=== PATIENT | male | born 1965 | race Caucasian/White ===

== ENCOUNTER 2017-02-08 01:13 | Emergency (ER) | payer MEDICAID ==
[~2017-02-08] VITALS: Ht 172.7 cm; Wt 63.4 kg
[~2017-02-08 01:13] MED LIST: CLIN300C8 PO; HYDR-3237 PO
[2017-02-08] MEDS ORDERED: ONDANSETRON ODT 4 MG ONE (01:50)
[2017-02-08] MEDS ORDERED: HYDROcodone/APAP 5/325 TABLET ONE (01:50)
[2017-02-08] MEDS ORDERED: ONDANSETRON ODT 4 MG PO ONE (02:00)
[2017-02-08] MEDS ORDERED: HYDROcodone/APAP 5/325 TABLET PO ONE (02:00)
[2017-02-08] MEDS ORDERED: LORazepam 0.5MG TABLET PO ONE (02:30)
[2017-02-08] MEDS ORDERED: LORazepam 0.5MG TABLET ONE (02:42)
[2017-02-08 03:00] LABS: DAU SCREEN DISCLAIMER
[2017-02-08 04:19] VITALS: BP 114/74
== END 2017-02-08 04:21 | disposition home or self-care (01) ==
LOC: ED 03:18
DX: N49.2 Inflammatory disorders of scrotum (principal); K40.90 Unilateral inguinal hernia, without obstruction or gangrene, not specified as recurrent; F15.10 Other stimulant abuse, uncomplicated
CPT/HCPCS: 76857; 76870; 80307; 81003; 99285; Q0162; G0479

== ENCOUNTER 2017-02-08 11:36 | Emergency (ER) | payer MEDICAID ==
[~2017-02-08] VITALS: Ht 172.7 cm; Wt 63.8 kg
[2017-02-08 11:37] VITALS: BP 129/88
[2017-02-08] MEDS ORDERED: HYDROcodone/APAP 5/325 TABLET ONE (12:13)
[2017-02-08] MEDS ORDERED: HYDROcodone/APAP 5/325 TABLET PO ONE (12:30)
[2017-02-08] MEDS ORDERED: OXYcodone/APAP 5/325MG TABLET PO ONE (12:30)
== END 2017-02-08 12:29 | disposition home or self-care (01) ==
LOC: ED 12:23
DX: R10.9 Unspecified abdominal pain (principal); F41.9 Anxiety disorder, unspecified
CPT/HCPCS: 99283

== ENCOUNTER 2017-05-06 07:43 | Emergency (ER) | payer MEDICAID ==
[~2017-05-06] VITALS: Ht 172.7 cm; Wt 64.0 kg
[2017-05-06 07:45] VITALS: BP 139/92
[2017-05-06] MEDS ORDERED: LORazepam 1MG TABLET PO ONE (08:00)
[2017-05-06] MEDS ORDERED: LORazepam 1MG TABLET ONE (08:07)
== END 2017-05-06 09:00 | disposition home or self-care (01) ==
LOC: ED 08:05
DX: F41.1 Generalized anxiety disorder (principal); Z88.0 Allergy status to penicillin
CPT/HCPCS: 99284

== ENCOUNTER 2018-02-12 04:47 | Emergency (ER) | payer MEDICAID, OTHER ==
[~2018-02-12] VITALS: Ht 172.7 cm; Wt 70.6 kg
[2018-02-12 07:08] VITALS: BP 139/92
== END 2018-02-12 07:25 | disposition home or self-care (01) ==
LOC: ED 07:20
DX: K40.90 Unilateral inguinal hernia, without obstruction or gangrene, not specified as recurrent (principal); Z88.0 Allergy status to penicillin
CPT/HCPCS: 99283

== ENCOUNTER 2018-03-05 02:51 | Emergency (ER) | payer OTHER ==
[~2018-03-05] VITALS: Ht 172.7 cm; Wt 66.0 kg
[2018-03-05 02:57] VITALS: BP 171/100
== END 2018-03-05 03:57 | disposition home or self-care (01) ==
LOC: ED 03:10
DX: K40.90 Unilateral inguinal hernia, without obstruction or gangrene, not specified as recurrent (principal); F41.1 Generalized anxiety disorder
CPT/HCPCS: 99283

== ENCOUNTER 2018-03-05 14:43 | Emergency (ER) | payer MEDICAID, OTHER ==
[~2018-03-05] VITALS: Ht 172.7 cm; Wt 66.9 kg
[2018-03-05 14:46] VITALS: BP 148/87
[2018-03-05] MEDS ORDERED: FAMOTIDINE 20 MG TABLET PO ONE (15:00)
[2018-03-05] MEDS ORDERED: FAMOTIDINE 20 MG TABLET ONE (15:10)
[2018-03-05] MEDS ORDERED: DIPHENHYDRAMINE 50 MG CAPSULE ONE (15:11)
[2018-03-05] MEDS ORDERED: DIPHENHYDRAMINE 25 MG CAPSULE PO ONE (15:30)
== END 2018-03-05 15:28 | disposition home or self-care (01) ==
LOC: ED 15:00
DX: R21 Rash and other nonspecific skin eruption (principal)
CPT/HCPCS: 99284; J7512; Q0163; Q0177

== ENCOUNTER 2020-07-30 21:04 | Emergency (ER) | payer MEDICAID ==
[~2020-07-30] VITALS: Ht 172.7 cm; Wt 69.2 kg
[~2020-07-30 21:04] MED LIST changes: -CLIN300C8 PO; +CLIN300C9 PO
[2020-07-30 21:05] VITALS: BP 138/90
[2020-07-30] MEDS ORDERED: LIDOCAINE-MPF 1%, 5ML ONE (22:14)
[2020-07-30] MEDS ORDERED: LIDOCAINE 1%, 10ML INFIL ONE (22:30)
[2020-07-30] MEDS ORDERED: LIDOCAINE 1%-EPI 1:100K, 50ML INFIL ONE (22:30)
[2020-07-30] MEDS ORDERED: SULFAMETH./TRIMETHOPRIM DS 800MG/160MG TABLET ONE (23:41)
[2020-07-30] MEDS ORDERED: CEPHALEXIN 500 MG CAPSULE ONE (23:41)
[2020-07-31] MEDS ORDERED: SULFAMETH./TRIMETHOPRIM DS 800MG/160MG TABLET PO ONE
[2020-07-31] MEDS ORDERED: CEPHALEXIN 500 MG CAPSULE PO ONE
== END 2020-07-30 23:50 | disposition home or self-care (01) ==
LOC: ED 23:30
DX: L03.116 Cellulitis of left lower limb (principal); L02.31 Cutaneous abscess of buttock; F17.210 Nicotine dependence, cigarettes, uncomplicated
CPT/HCPCS: 10060; 99406